=== PATIENT | male | born 1960 | race Caucasian/White ===

== ENCOUNTER 2017-03-31 10:11 | Outpatient (CLI) | payer MEDICARE, MEDICAID ==
[~2017-03-31] VITALS: Ht 167.6 cm; Wt 65.8 kg
[~2017-03-31 10:11] MED LIST: BREO1INH3 INH; GABA-282 PO; IBUP200C10 PO; OMEG100011 PO; OMEP20CA3 PO; PROAAER10 INH
[2017-03-31] MEDS ORDERED: NS 1,000 ML IV SCH (10:15)
[2017-03-31] MEDS ORDERED: PROPOFOL 200 MG/20 ML VIAL As Ordered ONE (11:17)
[2017-03-31] MEDS ORDERED: LIDOCAINE 2% INJ 100 MG/5 ML SDV (FOR ANES.) As Ordered ONE (11:17)
--- NOTE | 2017-03-31 11:24 | ROOR ---
Patient Name: Stanley Zelaya Procedure Date: 03/31/2017 11:10 AM Date of : 1960 Age: 56 Room: [facility] Gender: Male Note Status: Finalized Procedure: Colonoscopy Indications: High risk colon cancer surveillance: Personal history of colonic polyps, Last colonoscopy: February 2014 Providers: Chris DIANE MD Referring MD: JUAN PIMENTEL MD Requesting Provider: Medicines: Monitored Anesthesia Care Complications: No immediate complications. Procedure: Pre-Anesthesia Assessment: - The heart rate, respiratory rate, oxygen saturations, blood pressure, adequacy of pulmonary ventilation, and response to care were monitored throughout the procedure. The Colonoscope was introduced through the anus and advanced to the cecum, identified by appendiceal orifice and ileocecal valve. The colonoscopy was performed without difficulty. The patient tolerated the procedure well. The quality of the bowel preparation was excellent. Findings: The perianal and digital rectal examinations were normal. (Exam: Complete, Prep: Good or Excellent.) The entire examined colon appeared normal on direct and retroflexion views. Impression: - (Exam: Complete, Prep: Good or Excellent.) - The entire colon is normal on direct and retroflexion views. - No specimens collected. Recommendation: - Repeat colonoscopy in 5 years for surveillance based on personal history of previous adenomatous polyps. Chris Diane MD Chris DIANE MD 03/31/2017 11:24:24 AM This report has been signed electronically. Number of Addenda: 0 Note Initiated On: 03/31/2017 11:10 AM Estimated Blood Loss: Estimated blood loss: none.
[2017-03-31 11:45] VITALS: BP 127/63
== END 2017-03-31 11:46 | disposition home or self-care (01) ==
LOC: M OPP 10:11
PROVIDERS: ATTEND Internal Medicine Gastroenterology
DX: Z12.11 Encounter for screening for malignant neoplasm of colon (principal); Z86.010 Personal history of colon polyps; M54.9 Dorsalgia, unspecified; J45.909 Unspecified asthma, uncomplicated; D86.9 Sarcoidosis, unspecified; Z87.11 Personal history of peptic ulcer disease; K21.9 Gastro-esophageal reflux disease without esophagitis; Z79.899 Other long term (current) drug therapy; Z87.891 Personal history of nicotine dependence

== ENCOUNTER → 2018-01-26 | Outpatient (CLI) | payer OTHER | LOC: M RAD 10:53 | DX: R05 Cough (principal); J84.9 Interstitial pulmonary disease, unspecified | CPT/HCPCS: 71046 ==

== ENCOUNTER → 2019-07-08 | Outpatient (CLI) | payer MEDICARE, MEDICAID ==
[~2019-07-08] MED LIST changes: -GABA-282 PO; +GABA-843 PO; -IBUP200C10 PO; +IBUP200C25 PO; -OMEP20CA3 PO; +OMEP20CA4 PO
--- NOTE | 2019-07-08 09:28 | REP ---
MRI lumbar spine: 21, 19. Indication: Lumbar radiculopathy. Comparison: None. Technique: Multiplanar short and long TR sequences of the lumbar spine were obtained without IV Gadolinium. Findings: Vertebral body alignment is essentially anatomic. There is very minimal retrolisthesis of L2 and L3. No worrisome marrow signal is present. Disc dessication is present throughout. The visualized cord is normal. No significant paraspinal soft tissue abnormalities are present. L1/L2: There is no disc herniation or significant spinal canal / neural foraminal narrowing. L2/L3: Disc and spur complex is present most pronounced anteriorly. There is a small superimposed right foraminal disc protrusion which encroaches upon but does not compress the exiting left L2 nerve root. Bilateral facet arthropathy is present. There is no significant spinal canal narrowing. L3/L4: Diffuse disc bulge is present with right-sided marginal osteophytic spurring. There is moderate narrowing of the right neural foramen with the disc and spur complex contacting the exiting right L3 nerve root. There is no significant spinal canal or left neural foraminal narrowing. L4/L5: Mild diffuse disc bulge and bilateral facet arthropathy are present with mild bilateral neural foraminal narrowing. There is no significant spinal canal narrowing. L5/S1: There is no focal disc herniation or significant spinal canal / neural foraminal narrowing. Impression: Multilevel degenerative sequelae as described . There is no severe spinal canal narrowing. Please correlate findings with radicular level. Electronically Signed by Gino Lares DO 07/08/2019 09:19 A
== END ==
LOC: M RAD 07:59
PROVIDERS: ATTEND Nurse Practitioner Family
DX: M54.16 Radiculopathy, lumbar region (principal)

== ENCOUNTER → 2019-09-27 | Outpatient (REF) | payer MEDICARE, MEDICAID ==
[~2019-09-27] MED LIST changes: +OMEP1CAP73 PO; -OMEP20CA4 PO
== END ==
LOC: M LAB REF 13:06
PROVIDERS: ATTEND Physician Assistant
DX: J45.41 Moderate persistent asthma with (acute) exacerbation (principal)

== ENCOUNTER → 2020-10-13 | Outpatient (REF) | payer MEDICARE, MEDICAID ==
[~2020-10-13] MED LIST changes: +GABA-282 PO; -GABA-843 PO
== END ==
LOC: M LAB REF 11:33
PROVIDERS: ATTEND Internal Medicine
DX: R19.7 Diarrhea, unspecified (principal)

== ENCOUNTER → 2020-10-13 | Outpatient (CLI) | payer MEDICARE, MEDICAID | LOC: M LABSMTC 11:06 | PROVIDERS: ATTEND Family Medicine | DX: Z11.52 Encounter for screening for COVID-19 (principal); R19.7 Diarrhea, unspecified | CPT/HCPCS: 87507; C9803; U0003 ==

== ENCOUNTER → 2020-11-07 | Outpatient (CLI) | payer MEDICARE, MEDICAID ==
[~2020-11-07] MED LIST changes: +ISOVUE-370 76% 100ML VIAL As Ordered ONE
--- NOTE | 2020-11-07 17:41 | REP ---
INDICATION: ABD PAIN, R/O NEOPLASM VS STONE. COMPARISON: Comparison chest CT images May 18, 2012.. TECHNIQUE: Contrast dose: 100 ML of Isovue [address] technique: Helical scanning is acquiredand contiguous 3 mm axial images are reformatted. Dual phase postcontrast acquisition is acquired. MPR images are generated in coronal and sagittal planes. 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 There are numerous nodular opacities in the lung bases bilaterally. The largest of these is in the lingular segment of the left upper lobe which measures 1.6 cm in greatest diameter. This pattern is essentially unchanged from the prior study from 2011 and is compatible with granulomatous disease chronic disease. There are calcified lymph node residuals and the epicardial fat and in the portacaval lymph node region. There is no evidence of pleural effusion or upper abdominal ascites. A tiny quantity of pericardial fluid is seen. There is mild diffuse fatty infiltration of the liver. No focal liver lesion is appreciated on pre or post-contrast CT imaging. The spleen is normal in size homogeneous in texture. No adrenal lesion is seen. No abnormality is noted in the gallbladder or the pancreas. The kidneys enhance symmetrically and appear morphologically intact. No retroperitoneal mass or adenopathy is observed. Small and large bowel loops are normal in the abdomen and pelvis. There are dystrophic calcifications in the prostate. Urinary bladder is unremarkable. A normal appendix is seen in the right lower quadrant. No abdominal wall defect is appreciated. No bony destructive lesion is seen. IMPRESSION: Mild diffuse fatty infiltration of the liver. Old granulomatous calcific residuals and numerous granulomatous lung nodules again seen. No acute abdominal or pelvic abnormality seen. <Electronically signed by Saeed Victor > 11/07/20 [id number]
== END ==
LOC: M RAD 14:23
PROVIDERS: ATTEND Internal Medicine
DX: R10.9 Unspecified abdominal pain (principal); R91.8 Other nonspecific abnormal finding of lung field
CPT/HCPCS: 74178; Q9967

== ENCOUNTER → 2020-11-08 | Outpatient (REF) | payer MEDICARE, MEDICAID ==
[~2020-11-08] MED LIST changes: -ISOVUE-370 76% 100ML VIAL As Ordered ONE
== END ==
LOC: M LAB REF 09:05
PROVIDERS: ATTEND Surgery
DX: L72.3 Sebaceous cyst (principal)

== ENCOUNTER → 2020-12-04 | Outpatient (REF) | payer MEDICARE, MEDICAID | LOC: M LAB REF 17:15 | PROVIDERS: ATTEND Surgery | DX: L72.3 Sebaceous cyst (principal) ==

== ENCOUNTER → 2022-04-11 | Outpatient (CLI) | payer MEDICARE, MEDICAID ==
[~2022-04-11] MED LIST changes: +ALBU8.5H INH; +CLAR10CA3 PO; +FENO145T7 PO; +MONT10TA97 PO
== END ==
LOC: M LABSMTC 10:59
PROVIDERS: ATTEND Anesthesiology
DX: Z01.818 Encounter for other preprocedural examination (principal); Z11.52 Encounter for screening for COVID-19

== ENCOUNTER 2022-04-16 10:54 | Day surgery (SDC) | payer MEDICARE, MEDICAID ==
[~2022-04-16] VITALS: Ht 167.6 cm; Wt 66.6 kg
[~2022-04-16 10:54] MED LIST changes: +NS 1,000 ML IV ONE
[2022-04-16] MEDS ORDERED: LIDOCAINE 2% 100MG/5ML SDV (FOR ANES.) As Ordered ONE (12:58)
[2022-04-16] MEDS ORDERED: propofoL 200 MG/20 ML VIAL As Ordered ONE (12:58)
[2022-04-16] MEDS ORDERED: fentaNYL 100 MCG/2 ML INJECTION As Ordered ONE (13:01)
[2022-04-16 14:20] VITALS: BP 119/69
== END 2022-04-16 14:22 | disposition home or self-care (01) ==
LOC: M OPP 10:54
PROVIDERS: ATTEND Internal Medicine Gastroenterology
DX: Z12.11 Encounter for screening for malignant neoplasm of colon (principal); Z86.010 Personal history of colon polyps; D12.0 Benign neoplasm of cecum; D12.2 Benign neoplasm of ascending colon; K64.8 Other hemorrhoids; R12 Heartburn; E78.00 Pure hypercholesterolemia, unspecified; D86.9 Sarcoidosis, unspecified; J45.909 Unspecified asthma, uncomplicated; Z87.891 Personal history of nicotine dependence; Z79.1 Long term (current) use of non-steroidal anti-inflammatories (NSAID); Z79.51 Long term (current) use of inhaled steroids; Z79.899 Other long term (current) drug therapy; Z87.11 Personal history of peptic ulcer disease
CPT/HCPCS: 43235; 45380; 45385; 88305; J3010